=== PATIENT | male | born 1985 | race Caucasian/White ===

== ENCOUNTER 2017-01-30 11:03 | Emergency (ER) | payer OTHER ==
[~2017-01-30] VITALS: Ht 170.2 cm; Wt 107.4 kg
[~2017-01-30 11:03] MED LIST: IBUP1CAP9 PO; OXYC5TAB PO; RIVA1TAB4 PO; XRL15 PO
[2017-01-30 11:08] VITALS: TEMP 36.7; Ht 170.2 cm; Wt 107.4 kg
[2017-01-30 12:39] LABS: BASO % 0.3 %; EOS % 0.8 %; HEMATOCRIT 46.7 % (42-52); IG% 0.2 %; LYMPH % 19.5 %; MEAN CELL VOLUME 93.4 fL (80-100); MEAN CORPUSCULAR HEMOGLOBIN 33.4 pg (25-34); MEAN CORPUSCULAR HGB CONC 35.8 g/dl (32-36); MEAN PLATELET VOLUME 11.9 fL (7.4-10.4); MONO % 9.4 %; NEUT % 69.8 %; PLATELET COUNT 238 K/uL (130-400); WHITE BLOOD COUNT 9.21 K/uL (4.8-10.8)
[2017-01-30 12:40] LABS: BASO ABS # 0.03 K/uL (0-0.2); COMPLETE YES
[2017-01-30 12:45] LABS: PARTIAL THROMBOPLASTIN RATIO 1.1; PROTHROMBIN TIME (PATIENT) 10.3 SECONDS (9.0-12.0)
--- NOTE | 2017-01-30 12:46 | DIAGNOSTIC IMAGING REPORT ---
CHEST ONE VIEW PORTABLE CLINICAL HISTORY: Rib pain pain COMPARISON STUDY: 11/29/2015 FINDINGS: The bones soft tissues and hemidiaphragms are normal. The cardiomediastinal silhouette is normal. The lungs are clear. The pulmonary vasculature is normal. IMPRESSION: Negative chest. Electronically signed by: Iam Carlos M.D. 01/30/2017 12:45 PM Dictated Date/Time: 01/30/2017 12:44 PM
[2017-01-30 12:47] LABS: ALT/SGPT 38 U/L (12-78); BLOOD UREA NITROGEN 20 mg/dl (7-18); BUN/CREATININE RATIO 15.4 (10-20); CALCIUM 9.3 mg/dl (8.5-10.1); CARBON DIOXIDE 27 mmol/L (21-32); CHLORIDE 103 mmol/L (98-107); GLUCOSE 105 mg/dl (70-99); POTASSIUM 3.8 mmol/L (3.5-5.1); SODIUM 138 mmol/L (136-145)
[2017-01-30 12:50] LABS: ALB/GLOB RATIO 1.1 (0.9-2); ALKALINE PHOSPHATASE 127 U/L (45-117); AST/SGOT 21 U/L (15-37)
[2017-01-30] MEDS ORDERED: SODIUM CHLORIDE 0.9% 1000ML 1,000 ML IV STA (13:34)
[2017-01-30] MEDS ORDERED: MoRPHine SULFATE 4 MG/ML 1 ML CARP\\VIAL IV STA (13:34)
[2017-01-30] MEDS ORDERED: ONDANSETRON INJ 2 MG/ML 2 ML VIAL IV STA (13:34)
[2017-01-30] MEDS ORDERED: OPTIRAY 320 IV PRN (13:45)
--- NOTE | 2017-01-30 13:57 | EMERGENCY ROOM VISIT NOTE ---
History Report prepared by Trini: Lorie Del Cid Under the Supervision of: Dr. Bettina Fernandes M.D. 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 He describes the pain as stabbing. His pain is worse when he leans to the right side. He has some improvement when he sits up straight. His pain is slightly worse when he eats because it feels like everything is "squished." The patient notes that he was hospitalized for PEs last November and was put on Xarelto. He took it for 30 days and did not take anything after that. He also had a couple months of pain medications that he used. The patient does not follow up with a doctor regularly. He is unsure of the cause of his PEs, although he notes that he is not active and sits all day at work. He does not recall any long trips or surgeries prior to his previous episode of PEs. The patient smokes occasionally. He does not recall any history of gallbladder problems. 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 A total of 10 systems reviewed and were otherwise negative. Past Medical & Surgical Medical Problems: (1) Pulmonary emboli Family History Cancer Diabetes mellitus Social History Smoking Status: Current Every Day Smoker Alcohol Use: none Marital Status: Housing Status: lives with family Occupation Status: employed Current/Historical Medications Scheduled PRN Hydrocodone/Acetaminophen 5MG/325MG (Lancing 5MG/325MG), 1-2 TABLET PO Q6 PRN for Pain Ibuprofen (Ibuprofen), 200 MG PO BID PRN for Pain Allergies Coded Allergies: Cephalosporins (Unverified Allergy, Mild, 01/30/17) Sulfamethoxazole (Unverified Allergy, Mild, 01/30/17) Trimethoprim (Unverified Allergy, Mild, 01/30/17) Physical Exam Vital Signs Date Time Temp Pulse Resp B/P Pulse Ox O2 Delivery O2 Flow Rate FiO2 01/30/17 17:10 88 18 129/76 98 3/23/17 15:35 66 15 137/73 100 Room Air 01/30/17 14:45 72 18 115/72 98 Room Air 01/30/17 12:35 99 Room Air 01/30/17 11:08 36.7 85 20 128/80 98 Room Air Physical Exam Vital signs reviewed. General: Well-appearing 31 year old male, in no significant distress. HEENT: No scleral icterus, PERRLA, neck supple. Atraumatic. Cardiovascular: Regular rate and rhythm, no extra sounds. Pulmonary: Clear to auscultation bilaterally, normal work of breathing. Abdomen: Soft, mildly tender to deep palpation of the right upper quadrant, nondistended, positive bowel sounds. Musculoskeletal: Atraumatic, no peripheral edema. Neurologic: Patient awake alert and oriented x 3 Skin: Warm, dry, no rash Medical Decision & Procedures ER Provider Diagnostic Interpretation: Radiology results as stated below per my review and radiologist interpretation: CHEST ONE VIEW PORTABLE CLINICAL HISTORY: Rib pain pain COMPARISON STUDY: 11/29/2015 FINDINGS: The bones soft tissues and hemidiaphragms are normal. The cardiomediastinal silhouette is normal. The lungs are clear. The pulmonary vasculature is normal. IMPRESSION: Negative chest. Electronically signed by: Iam Carlos M.D. 01/30/2017 12:45 PM Dictated Date/Time: 01/30/2017 12:[address] ANGIOGRAM OF THE CHEST CLINICAL HISTORY: Right-sided chest pain. History of pulmonary embolism. COMPARISON STUDY: 11/29/2015 TECHNIQUE: Following the IV administration of 93 mL of Optiray-320, CT angiogram of the thorax was performed from the thoracic inlet to the lung bases utilizing the pulmonary embolus protocol. Images are reviewed in the axial, sagittal, and coronal planes. IV contrast was administered without complication. MIP imaging was performed. CT DOSE: 607.07 mGy.cm FINDINGS: No pathologically enlarged axillary mediastinal or hilar lymph nodes were visualized. There was no evidence of thoracic aortic dilatation. Evaluation of subsegmental pulmonary artery branches is significantly limited due to respiratory motion artifact. No central emboli are visualized. No pleural effusions are visualized. There was no evidence of focal pulmonary consolidation. IMPRESSION: 1. Limited study secondary to respiratory motion artifact. No central emboli identified. 2. No evidence of focal pulmonary consolidation Electronically signed by: Bib Alston M.D. 01/30/2017 2:12 PM Dictated Date/Time: 01/30/2017 2:06 PM BILIARY ULTRASOUND CLINICAL HISTORY: Right upper quadrant abdominal pain COMPARISON STUDY: CT scan dated 01/21/2012 FINDINGS: The pancreas is nonvisualized. No hepatic masses are visualized. There is no ductal dilatation. The common buttock measures 5 mm. There is no right-sided hydronephrosis. There is a 4 mm nonshadowing nonmobile echogenic focus within the gallbladder, likely representing a polyp. There is no gallbladder wall thickening. There is no pericholecystic fluid. IMPRESSION: 1. Nondiagnostic evaluation the pancreas 2. Small gallbladder polyp. No calculi identified. No ductal dilatation. Electronically signed by: Bib Alston M.D. 01/30/2017 4:26 PM Dictated Date/Time: 01/30/2017 4:24 PM Laboratory Results 01/30/17 11:38 Red Blood Count 5.00, Mean Corpuscular Volume 93.4, Mean Corpuscular Hemoglobin 33.4, Mean Corpuscular Hemoglobin Concent 35.8, Mean Platelet Volume 11.9, Neutrophils (%) (Auto) 69.8, Lymphocytes (%) (Auto) 19.5, Monocytes (%) (Auto) 9.4, Eosinophils (%) (Auto) 0.8, Basophils (%) (Auto) 0.3, Neutrophils # (Auto) 6.42, Lymphocytes # (Auto) 1.80, Monocytes # (Auto) 0.87, Eosinophils # (Auto) 0.07, Basophils # (Auto) 0.03 01/30/17 11:38 Test 01/30/17 11:38 01/30/17 13:34 White Blood Count 9.21 K/uL (4.8-10.8) Red Blood Count 5.00 M/uL (4.7-6.1) Hemoglobin 16.7 g/dL (14.0-18.0) Hematocrit 46.7 % (42-52) Mean Corpuscular Volume 93.4 fL (80-100) Mean Corpuscular Hemoglobin 33.4 pg (25-34) Mean Corpuscular Hemoglobin Concent 35.8 g/dl (32-36) Platelet Count 238 K/uL (130-400) Mean Platelet Volume 11.9 fL (7.4-10.4) Neutrophils (%) (Auto) 69.8 % Lymphocytes (%) (Auto) 19.5 % Monocytes (%) (Auto) 9.4 % Eosinophils (%) (Auto) 0.8 % Basophils (%) (Auto) 0.3 % Neutrophils # (Auto) 6.42 K/uL (1.4-6.5) Lymphocytes # (Auto) 1.80 K/uL (1.2-3.4) Monocytes # (Auto) 0.87 K/uL (0.11-0.59) Eosinophils # (Auto) 0.07 K/uL (0-0.5) Basophils # (Auto) 0.03 K/uL (0-0.2) RDW Standard Deviation 44.9 fL (36.4-46.3) RDW Coefficient of Variation 13.1 % (11.5-14.5) Immature Granulocyte % (Auto) 0.2 % Immature Granulocyte # (Auto) 0.02 K/uL (0.00-0.02) Prothrombin Time 10.3 SECONDS (9.0-12.0) Prothromb Time International Ratio 1.0 (0.9-1.1) Activated Partial Thromboplast Time 28.6 SECONDS (21.0-31.0) Partial Thromboplastin Ratio 1.1 Anion Gap 8.0 mmol/L (3-11) Est Creatinine Clear Calc Drug Dose 98.0 ml/min Estimated GFR () 85.5 Estimated GFR (Non- 73.7 BUN/Creatinine Ratio 15.4 (10-20) Calcium Level 9.3 mg/dl (8.5-10.1) Total Bilirubin 0.6 mg/dl (0.2-1) Direct Bilirubin < 0.1 mg/dl (0-0.2) Aspartate Amino Transf (AST/SGOT) 21 U/L (15-37) Alanine Aminotransferase (ALT/SGPT) 38 U/L (12-78) Alkaline Phosphatase 127 U/L (45-117) Total Creatine Kinase 52 U/L (39-308) Creatine Kinase MB < 0.5 ng/ml (0.5-3.6) Total Protein 8.8 gm/dl (6.4-8.2) Albumin 4.7 gm/dl (3.4-5.0) Globulin 4.1 gm/dl (2.5-4.0) Albumin/Globulin Ratio 1.1 (0.9-2) Creatine Kinase MB Ratio (0-3.0) Laboratory results per my review. Medications Administered Medications (Trade) Dose Ordered Sig/Ozzy Route Start Time Stop Time Status Last Admin Dose Admin Morphine Sulfate (MoRPHine SULFATE INJ) 4 mg NOW STAT IV 01/30/17 13:34 01/30/17 13:37 DC 01/30/17 15:00 4 MG Ondansetron HCl (Zofran Inj) 4 mg NOW STAT IV 01/30/17 13:34 01/30/17 13:37 DC 01/30/17 15:00 4 MG ECG Indication: other (rib pain) Rate (beats per minute): 68 Rhythm: normal sinus Findings: no acute ischemic change, no ectopy ED Course 1333: Past medical records reviewed. The patient was evaluated in room C12B. A complete history and physical examination was performed. 1334: Ordered Zofran Inj 4 mg IV, Morphine Sulfate 4 mg IV, NSS 1000 ml @ 150 mls/hr IV. 1642: Upon reevaluation, the patient appeared to have improvement of his symptoms. I discussed findings with the patient. He verbalized agreement of the treatment plan. The patient was discharged home. Medical Decision Differential diagnosis: Etiologies such as appendicitis, diverticulitis, PUD, biliary pathology, UTI, pancreatitis, obstruction, mesenteric ischemia, aortic pathology, infections, inflammatory bowel disease, renal colic, pulmonary embolism as well as others were entertained. This patient was evaluated and appeared to be in some discomfort. IV access was obtained and laboratory work was drawn. 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 Oxygen saturations are normal. Chest x-ray is clear. Laboratory work is fairly unrevealing. EKG reveals no evidence of ischemia or ectopy. CT scan of the chest was performed to rule out pulmonary emboli as the patient has a history of noncompliance and PE. This study is negative. I suspect the patient has a chronic pain. This may be related to her previous pulmonary infarct or musculoskeletal in nature. Ultrasound gallbladder reveals a small polyp without evidence of gallstones or acute cholecystitis. Patient was encouraged to follow-up with a primary care physician as soon as possible. He was encouraged to stop smoking. He requested pain medication and discharged and was given 4 tablets of Lancing. He will return to the ER for worsening of symptoms or any medical concerns. [place] Drug Monitoring Program Search Results: patient reviewed within database, no issues identified Impression Primary Impression: Right flank pain Scribe Attestation The scribe's documentation has been prepared under my direction and personally reviewed by me in its entirety. I confirm that the note above accurately reflects all work, treatment, procedures, and medical decision making performed by me. Departure Information Dispostion Home / Self-Care Prescriptions Hydrocodone/Acetaminophen 5MG/325MG (Lancing 5MG/325MG) Tab 1-2 TABLET PO Q6 Y for Pain, #4 TAB Prov: Bettina Fernandes M.D. 01/30/17 Referrals No Doctor, Assigned (PCP) Patient Instructions My [facility] Additional Instructions Diagnosis: Right flank pain Ibuprofen 600 mg every 6 hours as needed for pain with food. Lancing one to 2 tabs every 6 hours as needed for severe pain. Do not drive or take Tylenol with this medication. Follow-up with her primary care physician as soon as possible. Please call the [facility] appt line [phone] to establish a PCP Return to the emergency department for worsening of symptoms or any medical concerns.
--- NOTE | 2017-01-30 14:13 | DIAGNOSTIC IMAGING REPORT ---
CT ANGIOGRAM OF THE CHEST CLINICAL HISTORY: Right-sided chest pain. History of pulmonary embolism. COMPARISON STUDY: 11/29/2015 TECHNIQUE: Following the IV administration of 93 mL of Optiray-320, CT angiogram of the thorax was performed from the thoracic inlet to the lung bases utilizing the pulmonary embolus protocol. Images are reviewed in the axial, sagittal, and coronal planes. IV contrast was administered without complication. MIP imaging was performed. CT DOSE: 607.07 mGy.cm FINDINGS: No pathologically enlarged axillary mediastinal or hilar lymph nodes were visualized. There was no evidence of thoracic aortic dilatation. Evaluation of subsegmental pulmonary artery branches is significantly limited due to respiratory motion artifact. No central emboli are visualized. No pleural effusions are visualized. There was no evidence of focal pulmonary consolidation. IMPRESSION: 1. Limited study secondary to respiratory motion artifact. No central emboli identified. 2. No evidence of focal pulmonary consolidation Electronically signed by: Bib Alston M.D. 01/30/2017 2:12 PM Dictated Date/Time: 01/30/2017 2:06 PM
--- NOTE | 2017-01-30 16:27 | DIAGNOSTIC IMAGING REPORT ---
BILIARY ULTRASOUND CLINICAL HISTORY: Right upper quadrant abdominal pain COMPARISON STUDY: CT scan dated 01/21/2012 FINDINGS: The pancreas is nonvisualized. No hepatic masses are visualized. There is no ductal dilatation. The common buttock measures 5 mm. There is no right-sided hydronephrosis. There is a 4 mm nonshadowing nonmobile echogenic focus within the gallbladder, likely representing a polyp. There is no gallbladder wall thickening. There is no pericholecystic fluid. IMPRESSION: 1. Nondiagnostic evaluation the pancreas 2. Small gallbladder polyp. No calculi identified. No ductal dilatation. Electronically signed by: Bib Alston M.D. 01/30/2017 4:26 PM Dictated Date/Time: 01/30/2017 4:24 PM
[2017-01-30] MEDS ORDERED: HYDR-5688 PO (17:00)
[2017-01-30 17:10] VITALS: BP 129/76; PULSE 88; O2SAT 98
== END 2017-01-30 17:13 | disposition home or self-care (01) ==
LOC: C.EDB 11:05 → C.EDC 17:13
DX: R10.30 Lower abdominal pain, unspecified (principal); F17.200 Nicotine dependence, unspecified, uncomplicated; Z86.711 Personal history of pulmonary embolism; Z88.2 Allergy status to sulfonamides; Z88.8 Allergy status to other drugs, medicaments and biological substances; Z80.9 Family history of malignant neoplasm, unspecified; Z83.3 Family history of diabetes mellitus